=== PATIENT | female | born 1945 | race Caucasian/White ===

== ENCOUNTER 2018-01-03 07:11 | Emergency (ER) | payer MEDICARE, BC ==
[2018-01-03 07:20] VITALS: BP 141/80
--- NOTE | 2018-01-06 07:43 | ED ---
Jono Nava Angela, scribed for Richard Avalos MD on 01/03/18 at 0733 . Skin Complaint - HPI Summary HPI Summary: This pt is a 72 y/o female presenting to [facility] c/o red bumps on her buttocks since 03:00 this morning. Pt reports these bumps are pruritic and describes them as "welts." Denies fever, chills. Pt states she was just in [place] and has recently come back to [place]. She reports she used a toilet at a gas station. She notes she started a new medication, chlorthalidone, 10 days ago, as well as Augmentin 7 days ago. Pt denies involvement of any other body parts, throat tightening, difficulty breathing, rashes, hoarse voice. - History of Current Complaint Chief Complaint: EDRashSkinAbscess Stated Complaint: RASH Hx Obtained From: Patient Onset/Duration: Started Hours Ago, Still Present Skin Exposure Onset/Duration: Hours Ago Timing: Lasting Hours Current Severity: None Pain Intensity: 0 Pain Scale Used: 0-10 Numeric Skin Location: Other: - buttocks Character: Pruritus, Redness Aggravating Symptom(s): Nothing Alleviating Symptom(s): Nothing Associated Signs & Symptoms: Negative - Allergy/Home Medications Allergies/Adverse Reactions: Allergies Allergy/AdvReac Type Severity Reaction Status Date / Time azithromycin Allergy Rash Verified 11/11/17 09:53 metronidazole Allergy Hives/Diff. Verified 11/11/17 09:53 Breathing/I tching Penicillins Allergy Hives/Diff. Verified 11/11/17 09:53 Breathing/I tching Home Medications: Home Medications Aspirin EC TAB* [Ecotrin EC Low Dose 81 MG*] 81 mg PO DAILY 01/03/18 [History Confirmed 01/03/18] Chlorthalidone TAB* [Hygroton TAB*] 12.5 mg PO DAILY 01/03/18 [History Confirmed 01/03/18] Cyanocobalamin TAB* [Vitamin B12 TAB*] 1,000 mcg PO DAILY 01/03/18 [History Confirmed 01/03/18] Levothyroxine TAB* [Synthroid TAB*] 100 mcg PO DAILY 01/03/18 [History Confirmed 01/03/18] PMH/Surg Hx/FS Hx/Imm Hx Endocrine/Hematology History: Reports: Hx Thyroid Disease Denies: Hx Diabetes Cardiovascular History: Reports: Hx Hypertension Denies: Hx Pacemaker/ICD Respiratory History: Reports: Hx Asthma - VS FERNANDO? (CHRONIC INFECTION) PER PT Denies: Hx Chronic Obstructive Pulmonary Disease (COPD) GI History: Denies: Hx Ulcer History: Denies: Hx Dialysis, Hx Renal Disease Sensory History: Denies: Hx Hearing Aid Psychiatric History: Denies: Hx Panic Disorder - Cancer History Cancer Type, Location and Year: skin cancer - Surgical History Surgery Procedure, Year, and Place: TONSILECTOMY- as a child mohs procedure face last yr dx melanoma in situ. D&C. LESA TRIGGER FINGER. CATARACT Infectious Disease History: No Infectious Disease History: Denies: Hx Hepatitis, Hx Human Immunodeficiency Virus (HIV), Traveled Outside the [place] in Last 30 Days - Family History Known Family History: Negative: Cardiac Disease, Hypertension, Diabetes - Social History Alcohol Use: Daily Substance Use Type: Reports: None Smoking Status (MU): Former Smoker Type: Cigarettes Amount Used/How Often: 2 packs Length of Time of Smoking/Using Tobacco: 8 years Have You Smoked in the Last Year: No Review of Systems Negative: Fever, Chills Eyes: Negative ENT: Negative Cardiovascular: Negative Skin: Other - welts on buttocks All Other Systems Reviewed And Are Negative: Yes Physical Exam - Summary Physical Exam Summary: VITAL SIGNS: Reviewed. GENERAL: Patient is a well-developed and nourished female who is lying comfortable in the stretcher. Patient is not in any acute respiratory distress. HEAD AND FACE: No signs of trauma. No ecchymosis, hematomas or skull depressions. No sinus tenderness. EYES: PERRLA, EOMI x 2, No injected conjunctiva, no nystagmus. EARS: Hearing grossly intact. Ear canals and tympanic membranes are within normal limits. MOUTH: Oropharynx within normal limits. NECK: Supple, trachea is midline, no adenopathy, no JVD, no carotid bruit, no c- spine tenderness, neck with full ROM. CHEST: Symmetric, no tenderness at palpation LUNGS: Clear to auscultation bilaterally. No wheezing or crackles. CVS: Regular rate and rhythm, S1 and S2 present, no murmurs or gallops appreciated. ABDOMEN: Soft, non-tender. No signs of distention. No rebound no guarding, and no masses palpated. Bowel sounds are normal. EXTREMITIES: FROM in all major joints, no edema, no cyanosis or clubbing. NEURO: Alert and oriented x 3. No acute neurological deficits. Speech is normal and follows commands. SKIN: Dry and warm. Couple of welts in the gluteus area with no vesicular changes. No erythematous plaques. Triage Information Reviewed: Yes Vital Signs On Initial Exam: Initial Vitals Temp Pulse Resp BP Pulse Ox 97.4 F 88 17 141/80 97 01/03/18 07:14 01/03/18 07:14 01/03/18 07:14 01/03/18 07:14 01/03/18 07:14 Vital Signs Reviewed: Yes Diagnostics - Vital Signs Vital Signs Temp Pulse Resp BP Pulse Ox 01/03/18 07:14 97.4 F 88 17 141/80 97 - Laboratory Lab Statement: Any lab studies that have been ordered have been reviewed, and results considered in the medical decision making process. Course/Dx - Course Assessment/Plan: This pt is a 72 y/o female presenting to [facility] c/o red bumps on her buttocks since 03:00 this morning. Pt reports these bumps are pruritic and describes them as "welts." Denies fever, chills. Pt states she was just in [place] and has recently come back to [place]. She reports she used a toilet at a gas station. She notes she started a new medication, chlorthalidone, 10 days ago, as well as Augmentin 7 days ago. Pt denies involvement of any other body parts, throat tightening, difficulty breathing, rashes, hoarse voice. On exam pt has a couple of welts in the gluteus area with no vesicular changes and no erythematous plaques, consistent with insect bites. Pt has no throat tightening , no difficulty breathing, no hoarse voice and no rashes. Therefore she will be discharged to home with follow up from her PCP. I discussed all the findings and test results with the patient. All questions were answered to patient satisfaction. There were no further complaints or concerns. She is instructed to return to the ED for any worsening or new symptoms. Pt is hemodynamically stable, alert and oriented x3. - Diagnoses Provider Diagnoses: Insect bite Discharge - Sign-Out/Discharge Documenting (check all that apply): Discharge - discharge to home - Discharge Plan Condition: Stable Disposition: HOME Patient Education Materials: Insect Bite or Sting (ED) Referrals: Charisse Fajardo MD [Primary Care Provider] - Additional Instructions: Please follow up with your primary care provider. RETURN TO THE ED FOR ANY NEW OR WORSENING SYMPTOMS. The documentation as recorded by the Jono escalona Angela accurately reflects the service I personally performed and the decisions made by , Richard Avalos MD.
== END 2018-01-03 07:39 | disposition home or self-care (01) ==
LOC: ED 07:11
DX: S30.860A Insect bite (nonvenomous) of lower back and pelvis, initial encounter (principal); W57.XXXA Bitten or stung by nonvenomous insect and other nonvenomous arthropods, initial encounter; Y92.9 Unspecified place or not applicable; Z87.891 Personal history of nicotine dependence
CPT/HCPCS: 99281

== ENCOUNTER → 2019-03-06 14:06 | Emergency (ER) | payer MEDICARE, BC ==
[~2019-03-06 14:06] MED LIST: Ketorolac INJ* 30 MG/ML 1 ML VIAL IV PUSH ONE; Metoclopramide IV* 5 MG/ML 2 ML VIAL IV SLOW PU ONE
--- NOTE | 2019-03-06 15:13 | ED ---
Hypertension - HPI Summary HPI Summary: Pt is a 74 y/o F presenting to the ED with a chief complaint of hypertension. She states she was at work when she noticed she was lightheaded at around 1200. She came home and told her who recommended that she take her BP, which she saw was very high. She also reports an intense headache located across her forehead and tingling in her bilateral hands. The headache is still present and the tingling in her hands lasted only about 10 minutes. She states she is also still lightheaded, like she cant quite think straight and that she feels slow. Pt denies fever, chills, cough, chest pain, SOB, abd pain, nausea, vomiting, burning with urination, dysuria, and rash. Her pain is a 4/10. Vital signs while in room: HR 58bpm, BP 171/84, SaO2 99% on room air, 16 respirations per minute. The pt takes Amlodipine 5mg BID, Ramipril 5mg BID, Levofil 100mg, Vitamin D 1000 IU, Magnesium 500mg, and a probiotic daily. Her integration specialist is Dr. Wells, and her PCP is Dr. Gomes at [facility]. She has hx of migraines where she loses her speech. Home Medications Medication Instructions Recorded Confirmed Type Ramipril CAP* [Altace CAP*] 10 mg PO BID 08/28/12 01/03/18 History amLODIPine TAB* [Norvasc 5 mg TAB*] 5 mg PO BID 08/28/12 01/03/18 History Albuterol HFA INHALER* [Ventolin 1 puff INH DAILY PRN 11/11/17 01/03/18 History HFA Inhaler*] Albuterol inh POWDER (NF) [Proair 2 puff INH BID 11/11/17 01/03/18 History Respiclick] Aspirin EC TAB* [Ecotrin EC Low 81 mg PO DAILY 01/03/18 01/03/18 History Dose 81 MG*] Chlorthalidone TAB* [Hygroton TAB*] 12.5 mg PO DAILY 01/03/18 01/03/18 History Cyanocobalamin TAB* [Vitamin B12 1,000 mcg PO DAILY 01/03/18 01/03/18 History TAB*] Levothyroxine TAB* [Synthroid TAB*] 100 mcg PO DAILY 01/03/18 01/03/18 History Levoxyl 01/26/18 History - History of Current Complaint Chief Complaint: EDHypertension Stated Complaint: LIGHT HEADED/TINGLY HANDS/HIGH BP PER PT Hx Obtained From: Patient, Family/Website Project Manager - Onset/Duration: Started Hours Ago, Still Present Timing: Constant, Lasting Hours Aggravating Factor(s): Nothing Alleviating Factor(s): Nothing Associated Signs & Symptoms: Headaches, Tingling, Other: - lightheaded - Allergies/Home Medications Allergies/Adverse Reactions: Allergies Allergy/AdvReac Type Severity Reaction Status Date / Time azithromycin Allergy Rash Verified 03/06/19 14:15 metronidazole Allergy Hives/Diff. Verified 03/06/19 14:15 Breathing/I tching Penicillins Allergy Hives/Diff. Verified 03/06/19 14:15 Breathing/I tching diphenhydramine AdvReac Agitation Verified 03/06/19 15:26 [From Benadryl] Home Medications: Home Medications Albuterol inh POWDER (NF) [Proair Respiclick] 2 puff INH BID PRN 03/06/19 [ History Confirmed 03/06/19] Fluticasone HFA 110 mcg(NF) [Flovent HFA 110 mcg(NF)] 2 puff INH BID 03/06/19 [ History Confirmed 03/06/19] Lactobacillus Acidophilus [Probiotic Acidophilus] 1 tab PO DAILY 03/06/19 [ History Confirmed 03/06/19] Levothyroxine TAB* [Synthroid TAB*] 100 mcg PO DAILY 03/06/19 [History Confirmed 03/06/19] Magnesium Oxide TAB* [MagOx 400 TAB*] 400 mg PO DAILY 03/06/19 [History Confirmed 03/06/19] Ramipril CAP* [Altace CAP*] 10 mg PO BID 03/06/19 [History Confirmed 03/06/19] Rosuvastatin (NF) [Crestor (NF)] 5 mg PO DAILY 03/06/19 [History Confirmed 03/06] amLODIPine TAB* [Norvasc 5 mg TAB*] 2.5 mg PO DAILY 03/06/19 [History Confirmed 03/06/19] PMH/Surg Hx/FS Hx/Imm Hx Previously Healthy: Yes Endocrine/Hematology History: Reports: Hx Thyroid Disease Denies: Hx Diabetes Cardiovascular History: Reports: Hx Hypertension Denies: Hx Pacemaker/ICD Respiratory History: Reports: Hx Asthma - VS FERNANDO? (CHRONIC INFECTION) PER PT Denies: Hx Chronic Obstructive Pulmonary Disease (COPD) GI History: Denies: Hx Ulcer History: Denies: Hx Dialysis, Hx Renal Disease Sensory History: Denies: Hx Hearing Aid Psychiatric History: Denies: Hx Panic Disorder - Cancer History Cancer Type, Location and Year: skin cancer - Surgical History Surgery Procedure, Year, and Place: TONSILECTOMY- as a child mohs procedure face last yr dx melanoma in situ. D&C. LESA TRIGGER FINGER. CATARACT Infectious Disease History: No Infectious Disease History: Denies: Hx Hepatitis, Hx Human Immunodeficiency Virus (HIV), Traveled Outside the [place] in Last 30 Days - Family History Known Family History: Negative: Cardiac Disease, Hypertension, Diabetes - Social History Alcohol Use: Daily Hx Substance Use: No Substance Use Type: Reports: None Hx Tobacco Use: Yes Smoking Status (MU): Former Smoker Type: Cigarettes Amount Used/How Often: 2 packs Length of Time of Smoking/Using Tobacco: 8 years Have You Smoked in the Last Year: No Review of Systems Positive: Other - high BP. Negative: Fever, Chills Negative: Chest Pain Negative: Shortness Of Breath, Cough Negative: Abdominal Pain, Vomiting, Nausea Negative: burning, dysuria Negative: Rash Neurological: Other - lightheaded Positive: Headache, Paresthesia All Other Systems Reviewed And Are Negative: Yes Physical Exam - Summary Physical Exam Summary: Appearance: Ill-appearing, moderate pain distress, well-nourished Skin: Warm, color reflects adequate perfusion, dry Head: Normal Head/Face inspection, atraumatic Eyes: Conjunctiva clear ENT: Normal inspection Neck: Supple, no nodes, no JVD Respiratory: Lungs clear, normal breath sounds, no respiratory distress Cardio: RRR, No murmur, pulses normal, brisk capillary refill Abdomen: Soft, nontender Bowel sounds: Present Musculoskeletal: Strength Intact/ROM intact, no calf tenderness, no edema. Psychological: Normal Neuro: Alert, muscle tone normal, no focal deficit. A&O x3, CN II-XII intact, motor function 5/5, sensation intact, cerebellar normal Triage Information Reviewed: Yes Vital Signs On Initial Exam: Initial Vitals Temp Pulse Resp BP Pulse Ox 97.1 F 61 16 179/94 98 03/06/19 14:12 03/06/19 14:12 03/06/19 14:12 03/06/19 14:12 03/06/19 14:12 Vital Signs Reviewed: Yes - [place] Coma Scale Best Eye Response: 4 - Spontaneous Best Motor Response: 6 - Obeys Commands Best Verbal Response: 5 - Oriented Coma Scale Total: 15 Diagnostics - Vital Signs Vital Signs Temp Pulse Resp BP Pulse Ox 03/06/19 14:12 97.1 F 61 16 179/94 98 - Laboratory Result Diagrams: 03/06/19 17:04 03/06/19 17:04 Lab Statement: Any lab studies that have been ordered have been reviewed, and results considered in the medical decision making process. - Radiology CXR Radiology Interpretation Completed By: Radiologist Summary of Radiographic Findings: Hyperinflation. No active cardiopulmonary disease. ED physician has reviewed this report. - CT Brain CT CT Interpretation Completed By: Radiologist Summary of CT Findings: 1. NO EVIDENCE FOR ACUTE INTRACRANIAL ABNORMALITY. 2. FINDINGS SUGGESTIVE OF MILD CHRONIC SMALL VESSEL ISCHEMIC CHANGES. ED physician has reviewed this report. - EKG 1523 Cardiac Rate: Bradycardia - 56bpm EKG Rhythm: Sinus Bradycardia ST Segment: Non-Specific Ectopy: None EKG Comparison: Other Summary of EKG Findings: An EKG at 1523 reveals sinus bradycardia at 56bpm, nml AV CT, prolonged IV CT (127), nml QTc, and nml axis. Compared with 06/15/11, T waves are now upright in v1-v6. ED MD has reviewed and interpreted this EKG. National Institutes Of Health - NIH Scale Level of Consciousness: Alert/Keenly Responsive Ask Patient the Month and His/Her Age: Both Correct Ask Pt to Open/Close Eyes and Evaporator/Release Non-Paretic Hand: Both Correctly Best Gaze (Only Horizontal Eye Movement): Normal Visual Field Testing: No Visual Loss Facial Paresis-Pt to Smile & Close Eyes or Grimace Symmetry: Normal/Symmetrical Motor Function - Right Arm: No Drift-Holds 10 Seconds Motor Function - Left Arm: No Drift-Holds 10 Seconds Motor Function - Right Leg: No Drift-Holds 10 Seconds Motor Function - Left Leg: No Drift-Holds 10 Seconds Limb Ataxia-Must be out of Proportion to Weakness Present: Absent Sensory (Use Pinprick to Test Arms/Legs/Trunk/Face): Normal Best Language (Describe Picture, Name Items): No Aphasia Dysarthria (Read Several Words): Normal Extinction and Inattention: No Abnormality Total Score: 0 Re-Evaluation - Re-Evaluation 1st re-eval Re-Evaluation Time: 16:30 Change: Unchanged Comment: I discussed the results of the imaging and EKG with the patient. She states her pain is still at a 4/10. Her BP is 165/95. She states she had some numbness in her hand that lasted a few minutes but has since gone away. 2nd re-eval Re-Evaluation Time: 19:03 Change: Improved Comment: Pt states her headache has gone away and that she feels better. She will be d/c'ed with a dx of HTN in poor control, and she is stable and agreeable with this plan. Hypertension Course/Dx - Course Course Of Treatment: Pt is a 74 y/o F presenting to the ED with a chief complaint of hypertension. She states she was at work when she noticed she was lightheaded at around 1200. She came home and told her who recommended that she take her BP, which she saw was very high. She also reports an intense headache located across her forehead and tingling in her bilateral hands. The headache is still present and the tingling in her hands lasted only about 10 minutes. She states she is also still lightheaded, like she cant quite think straight and that she feels slow. Pt denies fever, chills, cough, chest pain , SOB, abd pain, nausea, vomiting, burning with urination, dysuria, and rash. Vital signs while in room: HR 58bpm, BP 171/84, SaO2 99% on room air, 16 respirations per minute. An EKG at 1523 reveals sinus bradycardia at 56bpm, nml AV CT, prolonged IV CT (127), nml QTc, and nml axis. Compared with 06/15/11, T waves are now upright in v1-v6. ED MD has reviewed and interpreted this EKG. CXR shows: Hyperinflation. No active cardiopulmonary disease. Brain CT shows: 1. NO EVIDENCE FOR ACUTE INTRACRANIAL ABNORMALITY. 2. FINDINGS SUGGESTIVE OF MILD CHRONIC SMALL VESSEL ISCHEMIC CHANGES. As of 1629, I discussed the results of the imaging and EKG with the patient. She states her pain is still at a 4/10. Her BP is 165/95. She states she had some numbness in her hand that lasted a few minutes but has since gone away. Pt states her headache has gone away and that she feels better. She will be d/c'ed with a dx of HTN in poor control, and she is stable and agreeable with this plan. - Diagnoses Provider Diagnoses: Hypertension, poor control Discharge - Sign-Out/Discharge Documenting (check all that apply): Patient Departure Patient Received Moderate/Deep Sedation with Procedure: No - Discharge Plan Condition: Stable Disposition: HOME Referrals: Sharon Gomes MD [Primary Care Provider] - - Attestation Statements Document Initiated by Scribe: Yes Documenting Scribe: Donna Livingston Provider For Whom Freddie is Documenting (Include Credential): Dr. Mckenzie Jorgensen MD. Scribe Attestation: Donna Nava, scribed for Dr. Mckenzie Jorgensen MD. on 03/06/19 at 1906. Status of Scribe Document: Ready
[2019-03-06 15:26] LABS: Urine Appearance Clear; Urine Bilirubin Negative (Negative); Urine Blood Negative (Negative); Urine Color Straw; Urine Glucose Negative (Negative); Urine Ketones Negative (Negative); Urine Nitrite Negative (Negative); Urine Protein Negative (Negative); Urine Specific Gravity 1.004 (1.010-1.030); Urine Urobilinogen Negative (Negative)
[2019-03-06 17:25] LABS: ABS Basophils 0.1 10^3/ul (0-0.2); ABS Eosinophils 0.1 10^3/ul (0-0.6); ABS Lymphocytes 1.7 10^3/ul (1.0-4.8); ABS Monocytes 0.5 10^3/ul (0-0.8); ABS Neutrophils 3.7 10^3/ul (1.5-7.7); Eosinophil % 2.4 %; Hematocrit 44 % (35-47); Hemoglobin 14.6 g/dL (12.0-16.0); Lymphocyte % 27.6 %; Mean Corpuscular HGB Conc 33 g/dL (31-36); Mean Corpuscular Hemoglobin 28 pg (27-31); Mean Corpuscular Volume 83 fL (80-97); Mean Platelet Volume 8.5 fL (7.4-10.4); Nucleated Red Blood Cells % 0.1; Platelet Count 184 10^3/uL (150-450); Red Cell Distribution Width 15 % (10.5-15)
[2019-03-06 17:31] LABS: Activated Partial Thrombo Time 38.3 seconds (26.0-38.0); INR 1.03 (0.82-1.09)
[2019-03-06 17:42] LABS: Albumin 4.2 g/dL (3.2-5.2); Albumin/Globulin Ratio 1.5 (1-3); BUN/Creatinine Ratio 14.9 (8-20); Calcium 9.8 mg/dL (8.6-10.3); EGFR African American 64.7 (>60); EGFR Non-African American 53.4 (>60); Globulin 2.8 g/dL (2-4); Potassium 3.5 mmol/L (3.5-5.0); Total Bilirubin 0.6 mg/dL (0.2-1.0)
[2019-03-06 17:47] LABS: CKMB ng/mL 1.7 ng/mL (0.6-6.3)
[2019-03-06 18:04] LABS: TSH (Thyroid Stimulating Horm) 5.49 mcIU/mL (0.34-5.60)
[2019-03-06 20:19] VITALS: BP 169/89
== END | disposition home or self-care (01) ==
LOC: ED 14:06
DX: I10 Essential (primary) hypertension (principal); R00.1 Bradycardia, unspecified; E07.9 Disorder of thyroid, unspecified; Z85.828 Personal history of other malignant neoplasm of skin; Z87.891 Personal history of nicotine dependence; J45.909 Unspecified asthma, uncomplicated
CPT/HCPCS: 36415; 70450; 71045; 80053; 81003; 82550; 82553; 83605; 83880; 84443; 84484; 85025; 85610; 85730; 93005; 96374; 96375; 99283; J1885; J2765